=== PATIENT | female | born 1945 | race Caucasian/White ===

== ENCOUNTER 2020-04-25 18:36 | Inpatient (IN) | payer MEDICARE, OTHER, SELFPAY ==
--- NOTE | ~2020-04-25 | XR_ITS ---
XR chest 1V portable 04/25/2020 19:54 Indication: Shortness of breath. History of CHF. COPD. Procedure: AP portable chest Comparison: No prior studies for comparison. Findings: Cardiomegaly with interstitial edema. No pleural effusion or pneumothorax. No acute osseous abnormality. Impression: 1: Cardiomegaly with interstitial edema. Reviewed, dictated and finalized at location A. Impression: 1: Cardiomegaly with interstitial edema.
[2020-04-25 18:44] VITALS: BP 163/105; PULSE 103; RESP 20; TEMP 36.4; O2SAT 80
--- NOTE | 2020-04-25 19:28 | ED.NAVMDI ---
HPI - Nausea/Vomiting/Diarrhea General Chief complaint: Nausea/Vomiting/Diarrhea Stated complaint: SOB Time Seen by Provider: 04/25/20 19:18 History of Present Illness HPI Narrative: Patient presents via EMS for vomiting and nausea. It started this afternoon. She got Zofran in the ambulance but she said is not helping yet. She has a history of COPD and wears oxygen at night. She said that she does not necessarily feel short of breath because she is always short of breath. She does have a slight cough and the sputum this morning was either clear or yellow. She denies fever chills or sweats. She lives with her daughter who is on her way to stay and visit with us here in the ER. She is able to walk with her walker and uses a wheelchair when out in public. Now she feels too weak to even get to a bedside commode. She smells of urine. She denies smoking drinking or drugs. MD elicited complaint: nausea and vomiting Onset (ago): hour(s) Associated nausea: Yes Associated abdominal pain: No Exacerbating factors: none Relieving factors: none Associated symptoms: cough Related Data Home Medications Medication Instructions Recorded Confirmed clopidogrel 04/25/20 furosemide 04/25/20 metformin mg 04/25/20 mirabegron [Myrbetriq] mg PO 04/25/20 montelukast mg 04/25/20 simvastatin mg 04/25/20 tiotropium bromide [Spiriva INHALATION 04/25/20 Respimat] Allergies Allergy/AdvReac Type Severity Reaction Status Date / Time No Known Allergies Allergy Verified 04/25/20 19:25 Review of Systems Review of Systems: Narrative: CONSTITUTIONAL: Denies fever, chills, or sweats. EYES: Denies visual changes, redness, or discharge. ENT: Denies rhinorrhea, congestion, sore throat, or otalgia. CARDIOVASCULAR: Denies chest pain, palpitations, or edema. RESPIRATORY: She has cough and dyspnea. GASTROINTESTINAL: Denies abdominal pain, but does have nausea, vomiting.she denies diarrhea. GENITOURINARY: Denies dysuria or hematuria. SKIN: Denies rash or itching. MUSCULOSKELETAL: Denies back pain, joint pain, or myalgia. NEUROLOGIC: Denies headache, numbness, or weakness. PSYCHIATRIC: She has depression, but is not on any medication for it. She sleeps well. All systems reviewed & are unremarkable except as noted in HPI and below PMFSH Past Medical History Medical History (Updated 04/25/20 @ 23:26 by Meaghan Valadez MD) CHF (congestive heart failure) COPD (chronic obstructive pulmonary disease) Hypoxia Morbid obesity Social History Social History (Updated 04/25/20 @ 19:32 by Meaghan Valadez MD) Smoking status: Former smoker Alcohol intake: never Substance use: never Gender identity (if verbalized by the patient): Female Exam Narrative: Exam Narrative: GENERAL: Well-appearing, well-nourished, and in no acute distress. Overweight, hair is unkempt. HEAD: Normocephalic, atraumatic. EYES: PERRLA and EOMI. ENT: Nares clear, no rhinorrhea or epistaxis. Mucous membranes moist. NECK: Supple. CHEST: Clear to auscultation. No respiratory distress. Breathing more rapidly. HEART: Regular rate and rhythm. No murmur heard. Normal peripheral pulses. ABDOMEN: Soft, nontender, nondistended, normal active bowel sounds. EXTREMITIES: Normal range of motion. Significant edema. SKIN: Warm, dry, no rash. NEURO: No focal deficits. Alert and oriented x3. PSYCH: Normal mood and affect. Quite pleasant Course Reevaluation(s) Reevaluation #1: I went in to tell the patient about her good response to the lace, and her urinary tract infection, and the reason for admission to the hospital. She is sure that she will be well enough to return back home after this hospitalization. Date: 04/25/20 Time: 23:29 Vital Signs Vital signs: Vital Signs Temperature 97.6 F 04/25/20 18:44 Pulse Rate 103 H 04/25/20 18:44 Respiratory Rate 04/25/20 18:44 Blood Pressure 163/105 H 04/25/20 18:44 Pulse Oximetry 80 L 04/25/20 18:44 Temperatu
[2020-04-25 19:44] LABS: Alveolar/Arterial O2 Gradient 18.9 mmHg; Base Excess ABG 0.7 mEq/l (+/-2.0); Fractional Inspired Oxygen 21 %; HCO3 ABG 27.4 mEq/l (22.0-26.0); Modified Allen's Test Pass; Oxygen Content ABG 18.3 %vol (16.0-22.0); Oxygen Saturation ABG 92.3 % (95.0-100.0); Oxyhemoglobin 89.6 % THb (90.0-100.0); PCO2 ABG 52.4 mmHg (35.0-45.0); PO2 ABG 68.1 mmHg (80.0-100.0); PO2 FiO2 Ratio Arterial Blood 3.24 %; Site Drawn LEFT RADIAL; Total Hemoglobin 14.5 g/dL (12.0-18.0); pH ABG 7.337 (7.350-7.450)
[2020-04-25 19:45] VITALS: BP 153/87; PULSE 94; RESP 18; TEMP 36.3; O2SAT 95
[2020-04-25 19:45] LABS: Device ROOM AIR
[2020-04-25 19:46] LABS: Basophils Percent Auto 0.4 % (0.2-1.2); Eosinophils Absolute Auto 0.1 K/mm3 (0-0.3); Eosinophils Percent Auto 0.8 % (0-4.4); Hematocrit 45.8 % (37.0-47.0); Hemoglobin 13.7 g/dL (12.0-15.0); Immature Granulocyte Absolute 0.05 K/mm3 (0.00-0.031); Immature Granulocyte Percent A 0.7 % (0-0.5); Lymphocytes Absolute Auto 0.54 K/mm3 (0.9-3.2); Lymphocytes Percent Auto 7.2 % (18.3-44.2); Mean Corpuscular HGB Conc 29.9 g/dl (32-36); Mean Corpuscular Hemoglobin 24.2 pg (26-34); Mean Corpuscular Volume 80.8 fl (80-100); Mean Platelet Volume 8.8 fl (7.4-10.4); Monocytes Absolute Auto 0.4 K/mm3 (0.1-0.6); Monocytes Percent Auto 4.6 % (2.6-8.5); Neutrophils Absolute Auto 6.5 K/mm3 (1.3-6.7); Neutrophils Percent Auto 86.3 % (45.5-73.1); Platelet Count Result 202 k/mm3 (150-375); Red Blood Count 5.67 M/mm3 (4.2-5.4); Red Cell Distribution Width 15.5 % (11.5-14.5); White Blood Count 7.5 K/mm3 (4.5-10.0)
[2020-04-25 19:52] LABS: Add Urine Microscopic? YES; Appearance Urine Clear (Clear); Bacteria Urine Trace /hpf; Bilirubin Urine Negative (Negative); Blood Urine 1+ (Negative); Color Urine Yellow (Yellow); Glucose Urine UA Negative (Negative); Ketones Urine Trace mg/dL (Negative); Leukocyte Esterase Ur Trace LEU/UL (Negative); Mucus Urine Rare /lpf; Nitrate Urine Positive (Negative); Protein Urine 2+ mg/dL (Negative); RBC Urine 0-2 /hpf (0-2); Specific Grav Ur 1.018 (1.001-1.035); Squamous Epithelial Cell Urine Few /hpf (Few); Urobilinogen Urine Negative mg/dL (<2.0); WBC Urine 16-20 /hpf
[2020-04-25] MEDS: FAMOTIDINE 20 MG/2 ML VIAL IV PUSH (19:55)
[2020-04-25] MEDS: FUROSEMIDE INJ 40 MG/4 ML VIAL IV PUSH (19:55)
[2020-04-25] MEDS: ONDANSETRON INJ 4 MG/2 ML VIAL IV PUSH (19:55)
[2020-04-25 19:58] LABS: Alanine Aminotransferase 16 U/L (4-35); Albumin Level 4.2 g/dL (3.5-5.1); Alkaline Phosphatase 113 U/L (38-126); Aspartate Amino Transferase 19 U/L (14-36); Bilirubin,Total 0.8 mg/dL (0.2-1.3); Blood Urea Nitrogen 15 mg/dL (7-17); Calcium 8.9 mg/dL (8.4-10.2); Carbon Dioxide 28 mmol/L (22-30); Chloride 102 mmol/L (98-107); Estimated CRCL calculation 74 ml/min; Estimated Glomerular Filt Rate > 60; Glucose 176 mg/dL (65-105); Lipase 60 U/L (23-300); Sodium 137 mmol/L (137-145)
[2020-04-25 19:59] LABS: Platelet Estimate Adequate (Adequate)
[2020-04-25 20:00] LABS: Hypochromasia 1+ (NORMAL)
[2020-04-25 20:01] LABS: Anisocytosis 1+ (NORMAL)
[2020-04-25 20:07] LABS: NT Pro B Type Natriuretic Pept 1020 PG/ML (5-100)
[2020-04-25 20:40] VITALS: BP 157/92; PULSE 96; RESP 15; O2SAT 96
[2020-04-25 22:14] VITALS: BP 141/88; PULSE 98; RESP 14; O2SAT 96
[2020-04-25 23:06] VITALS: BP 154/100; PULSE 91; RESP 15; TEMP 36.7; O2SAT 98
[2020-04-26] VITALS: BP 134/96; PULSE 103; RESP 22; TEMP 36.1; O2SAT 91; BMI 52.9
--- NOTE | 2020-04-26 | ECHO_ITS ---
Patient Info Name: Leigh Ann Kee Age: 74 years : 1945 Gender: Female Ht: 64 in Wt: 308 lbs BSA: 2.60 m2 HR: 80 bpm BP: 104 / 60 mmHg Heart Rhythm: Sinus Rhythm Technical Quality: Good Exam Date: 04/26/2020 10:21 AM Exam Location: [facility] Pulmonary Patient Status: Inpatient Admit Date: 04/25/2020 Staff Ordering Physician: Leta Norton PA-C Auxiliary Equipment Operator: Alex Rojas RDCS Attending Provider: Leta Norton PA-C Referring Physician: Errol YEN; Exam Type: CA echo doppler color flow Study Info Indications I51.7 - Cardiomegaly Complete two-dimensional, color flow and Doppler transthoracic echocardiogram is performed. History/Risk Factors Cardiomegaly; pulmonary edema, CHF, COPD. Summary 1. Left ventricular chamber dimension is normal. 2. Left ventricular systolic function is normal, estimated at 60-65%. 3. There is mildly increased left ventricular wall thickness. 4. The left ventricular diastolic function is grade I diastolic dysfunction. 5. E/e' 13 is mildly elevated. 6. Right ventricular systolic function is moderately reduced. 7. Right ventricular chamber dimension is moderately enlarged. 8. Left atrial chamber dimension is mildly enlarged. 9. Right atrial chamber dimension is moderately enlarged. 10. There is mild aortic valve sclerosis. 11. The mitral valve has moderately calcified annulus. 12. There is mild to moderate tricuspid valve regurgitation. 13. Moderate pulmonary hypertension, estimated pulmonary arterial systolic pressure is 57 mmHg. 14. Dilated inferior vena cava with >50% collapse upon inspiration consistent with elevated right atrial pressure, 10 mmHg. Left Ventricle E/e' 13 is mildly elevated. Left ventricular chamber dimension is normal. Left ventricular systolic function is normal, estimated at 60-65%. There is mildly increased left ventricular wall thickness. The left ventricular diastolic function is grade I diastolic dysfunction. Right Ventricle Right ventricular systolic function is moderately reduced. Right ventricular chamber dimension is moderately enlarged. Left Atria Left atrial chamber dimension is mildly enlarged. Right Atria Right atrial chamber dimension is moderately enlarged. Aortic Valve The aortic valve is trileaflet. There is mild aortic valve sclerosis. There is no aortic valve stenosis. There is no aortic valve regurgitation. Pulmonic Valve There is no pulmonic regurgitation. Mitral Valve The mitral valve has moderately calcified annulus. There is no mitral valve stenosis. There is no mitral valve regurgitation. Tricuspid Valve There is mild to moderate tricuspid valve regurgitation. Moderate pulmonary hypertension, estimated pulmonary arterial systolic pressure is 57 mmHg. Pericardium/Pleural There is no pericardial effusion. Inferior Vena Cava Dilated inferior vena cava with >50% collapse upon inspiration consistent with elevated right atrial pressure, 10 mmHg. Aorta The aortic root size at the sinus of Valsalva is normal. Left Ventricular Outflow Tract Name Value Normal LVOT 2D LVOT Diameter 2.0 cm LVOT Doppler
[2020-04-26 00:17] VITALS: BP 157/94; PULSE 90; RESP 17; O2SAT 99
--- NOTE | 2020-04-26 00:33 | ADMGEN ---
This patient, Leigh Ann Kee, was admitted to Medical Room 252-. Patient/family oriented to hospital policies and general routines including ID bracelet, bed and alarms, visiting hours, pain management, procedures, bathroom and other care routines, personal items, smoking policy, room service/diet, and visiting hours. Valuables list has been completed. Information on how to activate the Rapid Response Team has been discussed. Patient/Family are encouraged to report perceived risks to care and to ask questions if they do not understand what they are told or what they should do.
[2020-04-26 06:00] VITALS: BP 104/60; PULSE 88; RESP 20; TEMP 36.5; O2SAT 91
--- NOTE | 2020-04-26 08:05 | PM.IMHP ---
H&P: HPI History of Present Illness Chief complaint: UTI, CHF, morbid obesity, COPD, requiring oxygen Narrative: Leigh Ann Kee is a 74 year old female with a history of COPD on 2 L of oxygen at rest and 4 L of oxygen at night, morbid obesity, who presented to the emergency room after having an episode of dizziness while sitting down in her chair with associated nausea and dry heaves for a few hours. Her symptoms were waxing and waning during that time and became concerned and decided to come to the emergency room for further evaluation. She reports after arrival she was given some antiemetics with improvement of her symptoms. The patient states her daughter was concerned during this episode because she was asking her questions and the patient was not responding to her. Patient states she was not responding due to the amount of nausea, dry heaves and dizziness she was having and not some fact that she was having any confusion or trouble finding her words. At this time she denies any focal weakness, vision changes, trouble finding her words, dizziness, nausea, or vomiting. She reports her shortness of breath is stable but she has had intermittent cough the last 1-2 days with a yellow mucus productive sputum which she believes is associated to her postnasal drip and allergy symptoms right now. She denies any chest congestion. She is supposed to be on Lasix daily but states she has not been taking this medication except as needed. She has noticed increased leg swelling and she has some orthopnea. She denies any calf pain, redness, wounds or weeping to her legs. She denies any fevers, chills, chest pain, dysuria, change of color of urine, change to her frequent urination, lightheadedness, or any other symptoms at this time. She also reports having an intermittent headache to her right temporal area which only lasts a few minutes but has been present for a few days. Code status: Full code POA: Daughter, Bernadine Johnson PCP: Dr. Calderon Mejia in [place] Review of Systems Review of Systems: All systems reviewed & are unremarkable except as noted in HPI and below PMFSH Past Medical History Medical History (Updated 04/26/20 @ 10:02 by Leta Norton PA-C) CHF (congestive heart failure) Chronic respiratory failure with hypoxia COPD (chronic obstructive pulmonary disease) Diabetes mellitus Hyperlipidemia Morbid obesity Overactive bladder Surgical History Surgical History (Updated 04/26/20 @ 09:47 by Leta Norton PA-C) Hx of cardiac cath Hx of cholecystectomy Hx of colonoscopy Hx of hysterectomy Family History Family History (Updated 04/26/20 @ 09:50 by Leta Norton PA-C) Mother Hypertension Sibling Diabetes mellitus Morbidly obese Social History Social History (Updated 04/26/20 @ 09:50 by Leta Norton PA-C) Smoking packs per day: 1 Smoking cigarettes per day: 20.0 Years smoked: 20 Smoking pack-years: 20.00 Smoking status: Former smoker Tobacco type: cigarettes Alcohol intake: never Substance use: never Substance use type: does not use Living arrangements: with family Additional living arrangements comments: She lives in [place] with her Daughter. Occupation/Education: retired Additional occupation/education comments: She is a retired nurse. Gender identity (if verbalized by the patient): Female Spiritual care concerns: No Meds Home Medications and Allergies Home Medications Medication Instructions Recorded Confirmed Type clopidogrel 75 mg PO DAILY 04/25/20 04/26/20 History furosemide 40 mg PO DAILY 04/25/20 04/26/20 History metformin 500 mg PO BID 04/25/20 04/26/20 History mirabegron [Myrbetriq] 50 mg PO DAILY 04/25/20 04/26/20 History montelukast 10 mg PO HS 04/25/20 04/26/20 History simvastatin 20 mg PO HS 04/25/20 04/26/20 History albuterol sulfate 2.5 mg INHALATION QID PRN 04/26/20 04/26/20 History aspirin 81 mg PO DAILY 04/26/20
[2020-04-26 09:01] LABS: Basophils Percent Auto 0.4 % (0.2-1.2); Eosinophils Absolute Auto 0.1 K/mm3 (0-0.3); Hematocrit 43.8 % (37.0-47.0); Hemoglobin 13.2 g/dL (12.0-15.0); Immature Granulocyte Absolute 0.04 K/mm3 (0.00-0.031); Immature Granulocyte Percent A 0.4 % (0-0.5); Lymphocytes Absolute Auto 0.93 K/mm3 (0.9-3.2); Lymphocytes Percent Auto 10.2 % (18.3-44.2); Mean Corpuscular HGB Conc 30.1 g/dl (32-36); Mean Corpuscular Hemoglobin 24.7 pg (26-34); Mean Corpuscular Volume 81.9 fl (80-100); Mean Platelet Volume 9.3 fl (7.4-10.4); Monocytes Absolute Auto 0.9 K/mm3 (0.1-0.6); Monocytes Percent Auto 9.4 % (2.6-8.5); Neutrophils Absolute Auto 7.1 K/mm3 (1.3-6.7); Neutrophils Percent Auto 78.6 % (45.5-73.1); Platelet Count Result 226 k/mm3 (150-375); Red Blood Count 5.35 M/mm3 (4.2-5.4); Red Cell Distribution Width 15.4 % (11.5-14.5); White Blood Count 9.1 K/mm3 (4.5-10.0)
[2020-04-26] MEDS: MIRABEGRON 25 MG ER TABLET 50 MG PO (09:29)
[2020-04-26] MEDS: POTASSIUM CHLORIDE 20 MEQ TABLET.ER 40 MEQ PO (09:29)
[2020-04-26] MEDS: ASPIRIN 81 MG ENTERIC TABLET PO (09:29)
[2020-04-26] MEDS: FUROSEMIDE INJ 40 MG/4 ML VIAL IV PUSH (09:29)
[2020-04-26] MEDS: CLOPIDOGREL BISULFATE 75 MG TABLET PO (09:29)
[2020-04-26] MEDS: ENOXAPARIN 40 MG/0.4 ML SYRINGE SUB-Q (09:29)
[2020-04-26 09:35] LABS: Blood Urea Nitrogen 17 mg/dL (7-17); Calcium 8.9 mg/dL (8.4-10.2); Carbon Dioxide 33 mmol/L (22-30); Chloride 99 mmol/L (98-107); Estimated CRCL calculation 73 ml/min; Estimated Glomerular Filt Rate > 60; Glucose 119 mg/dL (65-105); Sodium 136 mmol/L (137-145)
[2020-04-26 09:42] VITALS: O2SAT 91
[2020-04-26 11:40] LABS: Glucose Point of Care 130 (65-105)
--- NOTE | 2020-04-26 12:47 | PCDIET ---
Physician Consult for Morbid Obesity,CHF and DM. Patient states she does not follow a diabetic diet at home. I explained the heart healthy diet today, discussing low fat and low Na. She ate 100% of her lunch. Patient instructions will be attached to discharged plan. Thank you for the consult.
[2020-04-26 14:00] VITALS: BP 109/66; PULSE 85; RESP 17; TEMP 36.6; O2SAT 88
[2020-04-26 16:39] LABS: Glucose Point of Care 133 (65-105)
[2020-04-26] MEDS: PANTOPRAZOLE 40 MG TABLET PO (18:16)
[2020-04-26] MEDS: ACETAMINOPHEN 325 MG TABLET 650 MG PO (18:18)
[2020-04-26] MEDS: MONTELUKAST SODIUM 10 MG TABLET PO (20:26)
[2020-04-26] MEDS: SIMVASTATIN 20 MG TABLET PO (20:26)
[2020-04-26 22:00] VITALS: BP 112/64; PULSE 87; RESP 22; TEMP 36.3; O2SAT 91
[2020-04-26 22:18] LABS: Glucose Point of Care 141 (65-105)
[2020-04-27] VITALS (12 sets, daily range): BP systolic 102–138; BP diastolic 50–75; PULSE 77–91; RESP 20–22; TEMP 36.1–36.3; O2SAT 78–93
[2020-04-27 06:34] LABS: Basophils Percent Auto 0.4 % (0.2-1.2); Eosinophils Absolute Auto 0.2 K/mm3 (0-0.3); Eosinophils Percent Auto 2.5 % (0-4.4); Hematocrit 42.5 % (37.0-47.0); Hemoglobin 12.5 g/dL (12.0-15.0); Immature Granulocyte Absolute 0.03 K/mm3 (0.00-0.031); Immature Granulocyte Percent A 0.4 % (0-0.5); Lymphocytes Absolute Auto 1.21 K/mm3 (0.9-3.2); Lymphocytes Percent Auto 16.7 % (18.3-44.2); Mean Corpuscular HGB Conc 29.4 g/dl (32-36); Mean Corpuscular Hemoglobin 23.9 pg (26-34); Mean Corpuscular Volume 81.4 fl (80-100); Mean Platelet Volume 9.2 fl (7.4-10.4); Monocytes Absolute Auto 0.7 K/mm3 (0.1-0.6); Monocytes Percent Auto 10.1 % (2.6-8.5); Neutrophils Absolute Auto 5.1 K/mm3 (1.3-6.7); Neutrophils Percent Auto 69.9 % (45.5-73.1); Platelet Count Result 199 k/mm3 (150-375); Red Blood Count 5.22 M/mm3 (4.2-5.4); Red Cell Distribution Width 15.6 % (11.5-14.5); White Blood Count 7.3 K/mm3 (4.5-10.0)
[2020-04-27 06:44] LABS: Blood Urea Nitrogen 20 mg/dL (7-17); Calcium 8.6 mg/dL (8.4-10.2); Carbon Dioxide 35 mmol/L (22-30); Chloride 97 mmol/L (98-107); Estimated CRCL calculation 59 ml/min; Estimated Glomerular Filt Rate 54; Glucose 126 mg/dL (65-105); Hemoglobin A1C 7.6 % (<5.7); Magnesium 2.1 mg/dL (1.6-2.3); Potassium 3.9 mmol/L (3.4-5.0); Sodium 136 mmol/L (137-145)
[2020-04-27 07:11] LABS: Platelet Estimate Adequate (Adequate)
[2020-04-27 07:12] LABS: Hypochromasia 1+ (NORMAL); Stomatocytes 2+ (NORMAL)
[2020-04-27] MEDS: ENOXAPARIN 40 MG/0.4 ML SYRINGE SUB-Q (09:36)
[2020-04-27] MEDS: ASPIRIN 81 MG ENTERIC TABLET PO (09:37)
[2020-04-27] MEDS: PANTOPRAZOLE 40 MG TABLET PO (09:37)
[2020-04-27] MEDS: CLOPIDOGREL BISULFATE 75 MG TABLET PO (09:37)
[2020-04-27] MEDS: MIRABEGRON 25 MG ER TABLET 50 MG PO (09:37)
[2020-04-27] MEDS: FUROSEMIDE 40 MG TABLET PO (09:37)
[2020-04-27] MEDS: INSULIN ASPART (*BKC) 100 UNITS/ML SUB-Q (09:44)
[2020-04-27 09:45] LABS: Glucose Point of Care 220 (65-105)
--- NOTE | 2020-04-27 10:19 | PCRCNOTE ---
HOME O2 EVALUATION COMPLETE; PT. REQUIRES 3LPM O2 AT REST AND 5LPM O2 WITH ACTIVITY. GREEN CARD PLACED ON PT.'S CHART. R.N. AND ZARA ORDOÑEZ PA-C BOTH NOTIFIED OF THE RESULTS. PT. IS ALREADY CURRENTLY SET UP WITH HOME O2 THROUGH IV AND RESPIRATORY CARE.
[2020-04-27 11:30] LABS: Glucose Point of Care 131 (65-105)
--- NOTE | 2020-04-27 14:45 | PM.DS ---
DS: Admitting Diagnosis Admitting Diagnosis Admitting Diagnosis: Heart failure, unspecified DS: Discharge Diagnosis Discharge Diagnosis (1) CHF (congestive heart failure): Code(s): I50.9 - Heart failure, unspecified Status: Acute Assessment and Plan: Acute on chronic CHF, unsure if diastolic vs systolic because we do not have an Echo on file. Echocardiogram has been ordered for further evaluation. She is supposed to be on Lasix 40 mg once a day but she only takes this when needed. She reports her shortness of breath with exertion has improved after IV Lasix treatment. We will continue her oral Lasix 40 mg once a day and recheck a BMP in 1 week to see if she needs any potassium supplementation added. Will have her follow-up with her primary care provider within 1 week for further evaluation. (2) Acute and chronic respiratory failure ([id number]): Code(s): J96.20 - Acute and chronic respiratory failure, unspecified whether with hypoxia or hypercapnia Status: Acute Assessment and Plan: Patient is normally on 2 L of oxygen at rest and with exertion, and 4 L of oxygen when she sleeps at night. Currently the patient is on 3 L via nasal cannula with an oxygen saturation at 91% Home oxygen evaluation shows she needs 3 L of oxygen at rest and 5 L with activity. (3) Acute UTI: Code(s): N39.0 - Urinary tract infection, site not specified Status: Acute Assessment and Plan: Patient's urinalysis is suspicious for a urinary tract infection. She reports chronic frequent urination but denies any dysuria, changes to urination or color. Urine culture came back with growth of E coli. Will continue with oral cefdinir for UTI treatment and I will monitor the final sensitivity results. (4) Dizziness: Code(s): R42 - Dizziness and giddiness Status: Acute Assessment and Plan: Patient reported dizziness prior to arrival which is what brought her into the ER. She denies any more dizziness at this time. Will tell her to get [id number] meclizine as needed for dizziness. (5) Nausea and vomiting: Code(s): R11.2 - Nausea with vomiting, unspecified Status: Acute Assessment and Plan: She denies any more nausea or vomiting at this time. (6) COPD (chronic obstructive pulmonary disease): Code(s): J44.9 - Chronic obstructive pulmonary disease, unspecified Status: Acute Assessment and Plan: Will continue her home medications and p.r.n. albuterol No wheezing auscultated at this time. (7) Morbid obesity: Code(s): E66.01 - Morbid (severe) obesity due to excess calories Status: Acute Assessment and Plan: Educated the patient about exercising and weight loss. Dietitian went to evaluate her and educated her on weight loss, diet changes with diabetes and CHF PT and OT and she is stable to go back home with home health. (8) Diabetes mellitus: Code(s): E11.9 - Type 2 diabetes mellitus without complications Status: Acute Assessment and Plan: She is on metformin which has been held. Serum glucose this morning was 126. Fair control. Hemoglobin A1c was 7.6. She may need further increase of her metformin or adjustments by her primary care provider upon discharge and follow-up. (9) Generalized weakness: Code(s): R53.1 - Weakness Status: Acute Assessment and Plan: Patient states she was not taking her Lasix medication because she did not want have to get up and go to the bathroom some many times. The patient do
== END 2020-04-27 16:07 | disposition home or self-care (01) | DRG 291 ==
LOC: ANHED 23:28 → ANH2MED 23:43
PROVIDERS: Physician Assistant; Admitting Provider Internal Medicine; Emergency Provider Emergency Medicine; Visit Provider Family Medicine
DX: I50.9 Heart failure, unspecified (principal); J96.21 Acute and chronic respiratory failure with hypoxia; N39.0 Urinary tract infection, site not specified; Z68.43 Body mass index [BMI] 50.0-59.9, adult; B96.20 Unspecified Escherichia coli [E. coli] as the cause of diseases classified elsewhere; R42 Dizziness and giddiness; J44.9 Chronic obstructive pulmonary disease, unspecified; E66.01 Morbid (severe) obesity due to excess calories; E11.9 Type 2 diabetes mellitus without complications; Z99.81 Dependence on supplemental oxygen
CPT/HCPCS: 36415; 36600; 71045; 80048; 80053; 81001; 82805; 83036; 83690; 83735; 83880; 85025; 87077; 87086; 87088; 87186; 93306; 94618; 96365; 96375; 97110; 97116; 97161; 97165; 99285; A9270; J0696; J1650; J1815; J1940; J2405